=== PATIENT | male | born 1955 | race Caucasian/White ===

== ENCOUNTER 2019-04-30 00:16 | Emergency (ER) | payer OTHER ==
[~2019-04-30] VITALS: Ht 177.8 cm; Wt 95.0 kg
[2019-04-30 00:37] VITALS: BP 129/82
--- NOTE | 2019-04-30 00:47 | NUR ---
PA AT BEDSIDE TO ASSESS PT
[2019-04-30] MEDS ORDERED: LIDOCAINE-MPF 1%, 5ML ONE ×2 (00:54→01:15)
[2019-04-30] MEDS ORDERED: LIDOCAINE 1%, 10ML INFIL ONE (01:00)
[2019-04-30] MEDS ORDERED: NEOSPORIN OINT. PKT 1 PACKET ONE (01:41)
--- NOTE | 2019-04-30 02:00 | NUR ---
Patient/Caregiver given discharge instructions and they have confirmed that they understand the instructions. Patient ambulatory with steady gait.
== END 2019-04-30 02:01 | disposition home or self-care (01) ==
LOC: ED 01:30
DX: S01.81XA Laceration without foreign body of other part of head, initial encounter (principal); S09.90XA Unspecified injury of head, initial encounter; W01.0XXA Fall on same level from slipping, tripping and stumbling without subsequent striking against object, initial encounter; Y93.89 Activity, other specified; Y92.098 Other place in other non-institutional residence as the place of occurrence of the external cause; Y99.8 Other external cause status
CPT/HCPCS: 12052; 99284

== ENCOUNTER 2020-01-31 20:44 | Emergency (ER) | payer OTHER ==
[~2020-01-31] VITALS: Ht 177.8 cm; Wt 98.0 kg
[2020-01-31 21:16] VITALS: BP 154/97
--- NOTE | 2020-01-31 21:18 | NUR ---
PT COMES IN C/O PARTIDA, SOB, COUGHING FOLLOWING DRINKING WATER. STATES HE IS SOB WHEN LYING DOWN. MONITORS CONNECTED. STATES NO ADDITIONAL NEEDS AT THIS TIME
== END 2020-01-31 22:14 | disposition home or self-care (01) ==
LOC: ED 22:09
DX: R06.00 Dyspnea, unspecified (principal)
CPT/HCPCS: 99281